=== PATIENT | female | born 1995 | race Caucasian/White ===

== ENCOUNTER 2017-05-06 20:25 | Emergency (ER) | payer BC, OTHER ==
[~2017-05-06] VITALS: Ht 152.4 cm; Wt 55.4 kg
[2017-05-06 20:28] VITALS: Ht 152.4 cm; Wt 55.4 kg
--- NOTE | 2017-05-06 20:53 | EMERGENCY ROOM VISIT NOTE ---
History Report prepared by Rosario: Vivek Amaya Under the Supervision of: Dr. Arvind Junior M.D. First contact with patient: 20:33 Chief Complaint: MENTAL HEALTH EVALUATION Stated Complaint: VOL 302 History of Present Illness The patient is a 22 year old female who presents to the Emergency Room with complaints of altered mental status. She states that she has been feeling depressed and has had a difficult time getting over her breakup that happened 1 year ago. She states that her ex boyfriend cheated on her on her birthday exactly 1 year ago today. Per the major case detective, her ex-boyfriend states that he received suicidal text messages from the patient and that she was not returning his phone calls. 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 She denies chest pain, SOB, headaches, fevers, pain and swelling in her legs, and . She denies suicidal ideation or homicidal ideation. She denies speaking with a [facility] counselor but would like to. She denies a medical history of diabetes and thyroid conditions. 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 Patient denies leg pain and swelling. Review of Systems See HPI for pertinent positives & negatives. A total of 10 systems reviewed and were otherwise negative. Past Medical & Surgical Old medical records were reviewed. Nurse's notes were reviewed and I agree with. Social History Smoking Status: Never Smoker Smokeless Tobacco Use: No Alcohol Use: occasionally Drug Use: none Marital Status: single Housing Status: lives alone Occupation Status: [employer] student Current/Historical Medications Scheduled Control Pills ( Control Pills), 1 TAB PO DAILY Allergies Coded Allergies: No Known Allergies (Unverified , 05/06/17) Physical Exam Vital Signs Date Time Temp Pulse Resp B/P (MAP) Pulse Ox O2 Delivery O2 Flow Rate FiO2 05/06/17 22:32 36.5 77 20 128/76 100 Room Air 05/06/17 20:28 36.3 72 20 131/80 96 Room Air Physical Exam General: Non-ill appearing young female in no acute distress. HEENT: Normal cephalic atraumatic. Pupils are equal round and reactive to light. Extraocular movements are intact. Oropharynx is pink with moist mucous membranes. No swelling of the mouth lips or tongue. Neck: Supple with a midline trachea. No meningeal signs or stiffness, no JVD or bruits. No Stridor. Chest: Clear to auscultation bilaterally. No wheezes or rhonchi. No increased work of breathing. Heart: regular rate and rhythm. Abdomen: Soft nontender, nondistended without rebound guarding or rigidity. Extremities: No cyanosis clubbing or edema. No calf tenderness or assymetry Spine/Back. Non tender to palpation. No CVA tenderness Skin: Good turgor without rashes. Neurologic exam: Alert and oriented x3. Cranial nerves two through 12 are intact. Motor and sensation are intact and symmetrical throughout. Psych: normal thought process and affect. Medical Decision & Procedures Laboratory Results 05/06/17 21:03 Red Blood Count 4.65, Mean Corpuscular Volume 89.2, Mean Corpuscular Hemoglobin 30.5, Mean Corpuscular Hemoglobin Concent 34.2, Mean Platelet Volume 10.2, Neutrophils (%) (Auto) 48.9, Lymphocytes (%) (Auto) 43.2, Monocytes (%) (Auto) 6.6, Eosinophils (%) (Auto) 0.8, Basophils (%) (Auto) 0.3, Neutrophils # (Auto) 4.49, Lymphocytes # (Auto) 3.97, Monocytes # (Auto) 0.61, Eosinophils # (Auto) 0.07, Basophils # (Auto) 0.03 05/06/17 21:03 Test 05/06/17 20:39 05/06/17 21:03 Urine Opiates Screen NEG (NEG) Urine Methadone, Qualitative NEG (NEG) Urine Barbiturates NEG (NEG) Urine Phencyclidine (PCP) Level NEG (NEG) Ur Amphetamine/Methamphetamine NEG (NEG) MDMA (Ecstasy) Screen NEG (NEG) Urine Benzodiazepines Screen NEG (NEG) Urine Cocaine Metabolite NEG (NEG) Urine Marijuana (THC) NEG (NEG) White Blood Count 9.19 K/uL (4.8-10.8) Red Blood Count 4.65 M/uL (4.2-5.4) Hemoglobin 14.2 g/dL (12.0-16.0) Hematocrit 41.5 % (37-47) Mean Corpuscular Volume 89.2 fL (80-100) Mean Corpuscular Hemoglobin 30.5 pg (25-34) Mean Corpuscular Hemoglobin Concent 34.2 g/dl (32-36) Platelet Count 289 K/uL (130-400) Mean Platelet Volume 10.2 fL (7.4-10.4) Neutrophils (%) (Auto) 48.9 % Lymphocytes (%) (Auto) 43.2 % Monocytes (%) (Auto) 6.6 % Eosinophils (%) (Auto) 0.8 % Basophils (%) (Auto) 0.3 % Neutrophils # (Auto) 4.49 K/uL (1.4-6.5) Lymphocytes # (Auto) 3.97 K/uL (1.2-3.4) Monocytes # (Auto) 0.61 K/uL (0.11-0.59) Eosinophils # (Auto) 0.07 K/uL (0-0.5) Basophils # (Auto) 0.03 K/uL (0-0.2) RDW Standard Deviation 39.5 fL (36.4-46.3) RDW Coefficient of Variation 12.3 % (11.5-14.5) Immature Granulocyte % (Auto) 0.2 % Immature Granulocyte # (Auto) 0.02 K/uL (0.00-0.02) Anion Gap 10.0 mmol/L (3-11) Est Creatinine Clear Calc Drug Dose 93.4 ml/min Estimated GFR () 133.0 Estimated GFR (Non- 114.7 BUN/Creatinine Ratio 14.2 (10-20) Calcium Level 9.4 mg/dl (8.5-10.1) Total Bilirubin 0.2 mg/dl (0.2-1) Direct Bilirubin < 0.1 mg/dl (0-0.2) Aspartate Amino Transf (AST/SGOT) 20 U/L (15-37) Alanine Aminotransferase (ALT/SGPT) 25 U/L (12-78) Alkaline Phosphatase 92 U/L (45-117) Total Protein 8.6 gm/dl (6.4-8.2) Albumin 4.3 gm/dl (3.4-5.0) Lipase 155 U/L (73-393) Human Chorionic Gonadotropin, Qual NEG (NEG) Ethyl Alcohol mg/dL < 3.0 mg/dl (0-3) Laboratory studies as stated above per my review. ED Course 2032: Past medical records reviewed. The patient was evaluated in room A6, and a complete history and physical examination were performed. 2099: I spoke with the the major case detective and checked on the patient. 2204: I discussed the patient's case with the major case detective. The patient will be evaluated for further management. 2244: Upon reevaluation, the patient is doing well. I discussed the results and treatment plan with the case manger and patient. I spoke with the patient and she denies wanting to hurt herself. She will follow up with [facility]. She verbalized agreement of the treatment plan. The patient was discharged home. Medical Decision Differential diagnoses include depression, anxiety, suicidal ideation, toxicology process, metabolic and electrolytic abnormality. This patient comes in as described above. She is brought in after talking to her ex-boyfriend of the telephone and saying that she wanted to end it. She was upset with him and she denies any suicidal or homicidal ideations now. She says she was not trying to hurt her self and she was just upset. She has not tried to hurt herself. She has no psychiatric history. She does have supportive friends that are waiting for her. She denies any drug or alcohol use. She is cooperative in the ER and has normal thought process. Multiple blood testing was obtained. she is medically cleared. she was evaluated by our psychiatric mental health major case detective who feels that she is safe to go home I agree. We have also talked to ex-boyfriend who is in agreement with the plan. The patient was given information. 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 She is encouraged to return to the ER if: Thoughts of hurting herself or others, worsening of symptoms, any new problems or concerns. Medication Reconcilliation Current Medication List: was personally reviewed by me Blood Pressure Screening Patient's blood pressure: Normal blood pressure Blood pressure disposition: Did not require urgent referral Consults Time Called: 2203 Consulting Physician: Deflash And Wash Operator Returned Call: 2204 Discussed the patient's case. The patient will be evaluated for further management. Impression Primary Impression: Depression Scribe Attestation The scribe's documentation has been prepared under my direction and personally reviewed by me in its entirety. I confirm that the note above accurately reflects all work, treatment, procedures, and medical decision making performed by me. Departure Information Dispostion Home / Self-Care Patient Instructions My [facility] Additional Instructions Rest. Drink plenty of fluids. Return if: Thoughts of hurting herself or others, increasing depression, any new problems or concerns. Follow-up with [facility] this coming week
[2017-05-06] MEDS ORDERED: BCPILLS PO (21:24)
[2017-05-06 21:45] LABS: BASO % 0.3 %; BASO ABS # 0.03 K/uL (0-0.2); EOS % 0.8 %; EOS ABS # 0.07 K/uL (0-0.5); HEMATOCRIT 41.5 % (37-47); HEMOGLOBIN 14.2 g/dL (12.0-16.0); IG# 0.02 K/uL (0.00-0.02); LYMPH % 43.2 %; LYMPH ABS # 3.97 K/uL (1.2-3.4); MEAN CELL VOLUME 89.2 fL (80-100); MEAN CORPUSCULAR HEMOGLOBIN 30.5 pg (25-34); MEAN CORPUSCULAR HGB CONC 34.2 g/dl (32-36); MEAN PLATELET VOLUME 10.2 fL (7.4-10.4); MONO % 6.6 %; MONO ABS # 0.61 K/uL (0.11-0.59); NEUT % 48.9 %; NEUT ABS # 4.49 K/uL (1.4-6.5); PLATELET COUNT 289 K/uL (130-400); RED CELL DISTRIBUTION WIDTH CV 12.3 % (11.5-14.5); RED CELL DISTRIBUTION WIDTH SD 39.5 fL (36.4-46.3); WHITE BLOOD COUNT 9.19 K/uL (4.8-10.8)
[2017-05-06 22:03] LABS: ALBUMIN 4.3 gm/dl (3.4-5.0); ALT/SGPT 25 U/L (12-78); BLOOD UREA NITROGEN 11 mg/dl (7-18); CALCIUM 9.4 mg/dl (8.5-10.1); CARBON DIOXIDE 23 mmol/L (21-32); CREATININE 0.75 mg/dl (0.60-1.20); GLUCOSE 104 mg/dl (70-99); LIPASE 155 U/L (73-393); POTASSIUM 3.1 mmol/L (3.5-5.1); SODIUM 139 mmol/L (136-145)
[2017-05-06 22:05] LABS: ALKALINE PHOSPHATASE 92 U/L (45-117); AST/SGOT 20 U/L (15-37); TOTAL PROTEIN 8.6 gm/dl (6.4-8.2)
[2017-05-06 22:32] VITALS: BP 128/76; PULSE 77; TEMP 36.5; O2SAT 100
== END 2017-05-06 23:01 | disposition home or self-care (01) ==
LOC: C.EDB 20:28 → C.EDA 23:01
DX: F32.9 Major depressive disorder, single episode, unspecified (principal); Z79.3 Long term (current) use of hormonal contraceptives